=== PATIENT | male | born 1985 | race Two or more races ===

== ENCOUNTER 2024-12-19 02:29 | Emergency (ER) | payer SELFPAY ==
--- NOTE | 2024-12-19 01:21 | EDNOTE_ITS ---
ED Overdose RME/HPI General Chief Complaint: Overdose Stated Complaint: OVERDOSE RME / HPI RME / HPI Narrative: This section includes all my notes and documentations, including HPI, PE, and ED course. Benjamin Roach MD HPI: 39-year-old male BIBA with possible overdose. Per EMS, patient was drinking an unknown liquid with his friends.they reported his eyes suddenly rolled back and he fell back in his chair, going unresponsive. EMS administered Narcan with improvement. Blood sugar was 213. Patient endorses using crystal meth and fentanyl tonight. No other complaints reported. ROS: All negative except as documented in HPI. Physical Exam: General: Alert and oriented. No acute distress. Eyes: Conjunctivae and lids clear. EOMI. PERRL. ENT: No signs of head trauma. Patent airway. Neck: Supple. No tenderness. Heart: RRR. Lungs: No respiratory distress. Good air movement. No rhonchi, wheezing, rales. Chest: No tenderness. Abdomen: Soft and nontender. Normal bowel sounds. No distension. No rebound or guarding. Back: No tenderness. Legs: No clubbing, cyanosis, edema. Skin: Warm and dry. Neuro: Alert and oriented X 3. Cranial Nerves II-XII grossly intact. No peripheral motor deficits. Musculoskeletal: All major joints and bones are not tender with no limited ROM. I reviewed EMS notes. I reviewed all diagnostic test results. My interpretation of the EKG is NSR with no ST-T changes. My review of the CT head report is unremarkable. My review of the CT cervical spine report is no acute fracture. Blood tests unremarkable. UDS positive for methamphetamine and fentanyl. At this point, diagnoses include fentanyl poisoning and methamphetamine use. Treatment here included NS and Zofran. Significant improvement noted. Mental status returned to baseline. Patient stood and ambulated without any problems. Patient requested discharge. Based on my best medical judgment, made decision no further evaluation or treatment indicated at this time. Patient understands and agrees to the discharge instructions customized and printed, see below. Discharge Instructions from Dr. Roach: 1. As you requested, you are being discharged. 2. You don't meet the criteria for emergency retirement in psychiatric unit against your will. Because you have no thoughts of hurting yourself or others. And there are no signs of psychosis (loss of touch with reality) which can potentially be harmful to you and others. And you are able to stand and ambulate without any problems. And you are fully awake and alert and oriented. 3. See a private doctor later today 12/19/2024 for recheck and further care. Ask to review all test results and official radiology reports, to make sure you receive all necessary follow-ups and monitoring. Ask to help you stay healthy both physically and mentally. Including helping you to quit all drugs. And help to receive all services available to you, including referral to see mental health specialists. 4. Seek immediate medical care (you can call 911 any time) with thoughts of hurting yourself or with any concerns. Benjamin Roach MD Related Data Previous Rx's ?Medication ?Instructions ?Recorded naproxen 500 mg tablet 500 mg PO BID PRN pain #30 t abs 09/03/23 Allergies Allergy/AdvReac Type Severity Reaction Status Date / Time No Known Allergies Allergy Unverified 12/19/24 03:06 Review of Systems Review of Systems Systems Reviewed: All systems reviewed, normal except as documented ED Exam Narrative Physical exam: As noted in HPI. Course Quality Measures none Orders Category Date Time Status EKG (ED ONLY) *Do not use* NOW Care 12/19/24 01:23 Completed IV [Insert IV] NOW Care 12/19/24 03:59 Completed Saline [Insert IV] NOW Care 12/19/24 01:22 Completed Straight [In and Out Catheter] X1 Care 12/19/24 01:[address] cervical spine wo con Stat Exams 12/19/24 01:[address] head/brain wo con Stat Exams 12/19/24 01:23 Taken EKG (ED Only) Stat Exams 12/19/24 01:23 Ordered Acetaminophen Stat Lab 12/19/24 01:33 Completed Alcohol, Blood Medical Stat Lab 12/19/24 01:33 Completed Ammonia Stat Lab 12/19/24 01:33 Completed Bilirubin,Direct Stat Lab 12/19/24 01:33 Completed CBC Stat Lab 12/19/24 01:33 Completed CK [Creatine Kinase] Stat Lab 12/19/24 01:33 Completed CMP [Comprehensive Metabolic Panel] Stat Lab 12/19/24 01:33 Completed Drug Screen,Urine Stat Lab 12/19/24 03:40 Completed Magnesium Stat Lab 12/19/24 01:33 Completed PT [Prothrombin Time with INR] Stat Lab 12/19/24 01:33 Completed PTT [Partial Thromboplastin Time] Stat Lab 12/19/24 01:33 Completed Salicylate Stat Lab 12/19/24 01:33 Completed Troponin I Stat Lab 12/19/24 01:33 Completed VBG [Venous Blood Gas] Stat Lab 12/19/24 01:33 Completed Ondansetron Inj [Zofran Inj] Med 12/19/24 01:22 Discontinued 4 mg IVP X1 ONE Sodium Chloride 0.9% 1000 ml [Ns] 1,000 ml Med 12/19/24 01:22 Discontinued IV 999 mls/hr Vital Signs Vital signs: Vital Signs Temperature 97.2 F 12/19/24 03:00 Pulse Rate 63 12/19/24 03:00 Respiratory Rate 14 12/19/24 03:00 Blood Pressure 124/85 H 12/19/24 03:00 Pulse Oximetry (%) 97 12/19/24 03:00 Oxygen Delivery Method Room Air 12/19/24 03:00 Overdose MDM Narrative MDM Narrative:: Scribe Attestation: 12/19/24 Cynthia Hale am scribing for and in the presence of Dr. Roach. Unknown male RUI presents to the ED as a STAT medical for an overdose. Patient was seen by me immediately upon arrival at 0117. Per EMS, patient was drinking an unknown liquid with his friends tonight when his eyes suddenly rolled back and he fell back in his chair, going unresponsive. EMS administered Narcan IN without improvement and Narcan IM with improvement. Blood sugar en route was 213. Patient endorses using crystal meth tonight. No other complaints reported. Patient data External records reviewed:: None (Unknown previous visits) Clinical information provided by:: patient and EMS Social determinants that could affect healthcare access:: substance use (methamphetamine use) Patient has the following chronic illnesses:: unknown How is presenting disease/condition affected by chronic disease/condition?: no chronic disease Evaluation data The following diagnostics were reviewed and interpreted by me:: lab results, radiology exam(s) and EKG tracing(s) (My interpretation of the EKG: NSR (81 bpm) with no ST-T changes. Benjamin Roach MD) Lab and/or radiology exams considered but not ordered:: none Interpretation Summary: I reviewed all diagnostic test results. My interpretation of the EKG is NSR with no ST-T changes. My review of the CT head report is unremarkable. My review of the CT cervical spine report is no acute fracture. Blood tests unremarkable. UDS positive for methamphetamine and fentanyl. Medications / Prescriptions Medications or Prescriptions considered but not ordered:: none Medication administrations:: Medication Administration History Discontinued Medications Sodium Chloride (Ns) 1,000 mls @ 999 mls/hr IV .Q1H1M ONE Stop: 12/19/24 02:22 Last Infusion: 12/19/24 03:58 Dose: Infused Documented By: Admin: 12/19/24 02:33 Dose: 999 mls/hr Documented By: CVL Ondansetron HCl (Ondansetron Inj 2 Mg/Ml Inj 2 Ml) 4 mg IVP X1 ONE; Protocol Stop: 12/19/24 01:23 Last Admin: 12/19/24 03:26 Dose: Not Given Documented By: CVL Non-Admin Reason: Change of Condition NS, Zofran Consultations Consultation(s) initiated? (list below): No Diagnosis Overdose Differential Diagnosis: cocaine intoxication, suicide attempt by multiple drug overdose, poisoning by opiate or related narcotic, drug overdose, acetaminophen overdose and accidental drug ingestion Most likely diagnosis given after review of the tests above:: Fentanyl poisoning, Methamphetamine use Admission Indicated Admission indicated?: not indicated Explain why admission is indicated or not indicated:: With significant improvement, there was no indication for admission. Admission Request Was there a request for admission?: No Disposition Plan Disposition Plan: Discharge Discharge Attestation Discharge Attestation: The patient and all family members were given an opportunity to ask questions and understood the discharge instructions. Discharge instructions specifically effects, indications for sooner follow up or return to the emergency department, and the expected course of current diagnosis. Patient condition: Stable Discharge Plan Plan Patient Disposition: HOME (Self Care) Prescriptions/Referrals Prescriptions/Med Rec: No Action naproxen 500 mg tablet 500 mg PO BID PRN (Reason: pain) Qty: 30 0RF Referrals: No Primary/Family,Physician [Primary Care Provider] - In 1 week Problem List Clinical Impression: Fentanyl poisoning, Methamphetamine use Patient/Caregiver Discharge Instructions Discharge Activity: activity as tolerated Education Materials: ED Drug Abuse Additional Instructions: Discharge Instructions from Dr. Roach: 1. As you requested, you are being discharged. 2. You don't meet the criteria for emergency retirement in psychiatric unit against your will.? Because you have no thoughts of hurting yourself or others.? And there are no signs of psychosis (loss of touch with reality) which can potentially be harmful to you and others. And you are able to stand and ambulate without any problems. And you are fully awake and alert and oriented. 3. See a private doctor later today 12/19/2024 for recheck and further care. Ask to review all test results and official radiology reports, to make sure you receive all necessary follow-ups and monitoring. Ask to help you stay healthy both physically and mentally.? Including helping you to quit all drugs. And help to receive all services available to you, including referral to see mental health specialists. 4. Seek immediate medical care (you can call 911 any time) with thoughts of hurting yourself or with any concerns. Instrucciones de mahin del Dr. Roach: 1. [place] solicit?, se le da de mahin. 2. No cumple con los criterios para un ingreso de emergencia en nolan unidad psiqui?trica contra barba voluntad. Porque no tiene pensamientos de hacerse da?o a s? mismo ni a los dem?s. Y no presenta signos de psicosis (p?rdida de contacto con la realidad) que puedan ser perjudiciales para usted y los dem?s. Y puede ponerse de pie y caminar sin problemas. Y est? completamente despierto, alerta y orientado. 3. Consulte con un m?dico privado hoy mismo, 19/12/2024, para nolan nueva revisi?n y atenci?n adicional. Solicite la revisi?n de todos los resultados de las pruebas y los informes radiol?gicos oficiales para asegurarse de que reciba todos los seguimientos y la monitorizaci?n necesarios. Solicite ayuda para mantenerse jeffery f?laurita y mentalmente, incluyendo la ayuda para dejar todas las drogas. Y ayuda para recibir todos los servicios disponibles, incluyendo la derivaci?n a especialistas en pb mental. 4. Busque atenci?n m?dica inmediata (puede llamar al 911 en cualquier momento) si piensa que quiere hacerse da?o o tiene alguna inquietud. Print Language: German Stand Alone Forms: Cristy Award Info., Patient Portal Info Letter
--- NOTE | 2024-12-19 01:22 | XR_ITS ---
Examination: CT cervical spine without contrast 2-D sagittal reconstructions 2-D coronal reconstructions 3-D reconstructions. Exam date and time:December 19, 2024 0239 hours INDICATIONS: Overdose today, injury to neck, neck pain CTDI:vol (mGy) 9.06 DLP: (mGycm) 192 Technique: Multiple 2 mm axial sections of the cervical spine have been obtained. The coronal and sagittal reconstructions have been obtained. 3-D reconstructions have been obtained. Low dose protocols were performed. One or more of the following dose reduction techniques were used; automated exposure control, adjustment of the mA and/or KV according to patient size, use of iterative reconstruction technique. Findings: Axial sections demonstrate intact base of the skull. C1 exhibit satisfactory relationship to the odontoid. No acute cervical vertebral body fracture seen. Alignment posterior spinous processes satisfactory. Impression: No acute cervical fracture. 10 mm calcification soft tissue neck which may represent submandibular duct calculus Minor soft tissue asymmetry larynx
--- NOTE | 2024-12-19 01:23 | XR_ITS ---
Examination: CT brain head without contrast. 2-D sagittal coronal reconstructions Date and time of exam:December 19, 2024 1439 hours INDICATIONS: Overdose, altered mental status today CTDI: vol (mGy):48.6 DLP: (mGycm):927 Technique: Multiple CT axial sections of the brain have been obtained, 5 mm slice thickness. Contrast has not been administered. 2-D sagittal, coronal reconstructions have been obtained Low dose protocols were performed. One or more of the following dose reduction techniques were used; automated exposure control, adjustment of the mA and/or KV according to patient size, use of iterative reconstruction technique. Findings: No significant ventricular enlargement. Intra-axial or extra-axial hemorrhage density is not seen. No mass effect or midline shift Basal cisterns are not remarkable. Fourth ventricle is midline. Cranial vault intact. Impression: Negative for acute hemorrhage, mass effect or midline shift
[2024-12-19 01:46] LABS: Base Excess, Venous -2 (-3-3); O2 Saturation, Venous 66 % (96-97); PCO2, Venous 58 mmHg (36-56); PO2, Venous 37 mmHg (15-58); pH, Venous 7.26 (7.33-7.66)
[2024-12-19 01:47] LABS: Basophils % (Auto) 1 % (0-2.5); Eosinophils # (Auto) 0.2 Thou/mm3 (0.0-0.5); Eosinophils % (Auto) 2 % (0-10); Hematocrit 43.2 % (41.0-53.0); Immature Granulocytes % (Auto) 0 % (0-0); Immature Granulocytes Auto 0.02 Thou/mm3 (0.00-0.00); Lymphocytes # (Auto) 3.9 Thou/mm3 (1.0-4.8); Lymphocytes % (Auto) 45 % (10-50); Mean Corpuscular HGB Conc 34.7 g/dl (31.0-37.0); Mean Corpuscular Hemoglobin 32.3 pg (25.0-35.0); Mean Corpuscular Volume 93 fL (80-100); Monocytes # (Auto) 0.6 Thou/mm3 (0.0-0.8); Monocytes % (Auto) 7 % (0-12); Neutrophils # (Auto) 3.9 Thou/mm3 (1.8-7.7); Neutrophils % (Auto) 45 % (37-80); Nucleated Red Blood Cell % 0 /100 WBC (0); Platelet Count 260 Thou/mm3 (140-440); RDW Standard Deviation 47.6 fL (35.1-43.9); Red Blood Count 4.65 Miln/mm3 (4.50-5.90); White Blood Count 8.6 Thou/mm3 (3.8-10.6)
[2024-12-19 02:02] LABS: INR 1.1 (0.9-1.3); Prothrombin Time 11.7 Seconds (9.0-12.2)
[2024-12-19 02:05] VITALS: BMI 28.3
[2024-12-19 02:11] LABS: Acetaminophen < 2.0 mcg/mL (10.0-20.0); Alanine Aminotransferase 14 U/L (10-49); Albumin, Serum 4.6 gm/dL (3.5-5.0); Albumin/Globulin Ratio 2.2 (1.2-2.2); Alcohol, Blood Medical < 10.0 mg/dL (0-10.0); Alkaline Phosphatase 95 U/L (46-116); Ammonia < 10 uMol/L (11-32); Anion Gap 13 (7-16); Aspartate Amino Transferase 21 U/L (0-34); BUN/Creatinine Ratio 14 Ratio (12-20); Bilirubin,Direct 0.2 mg/dL (0.0-0.3); Bilirubin,Total 0.8 mg/dL (0.3-1.2); Blood Urea Nitrogen 15 mg/dL (9-23); Calcium 8.9 mg/dL (8.3-10.6); Calcium (Corrected) 8.9 mg/dL (8.5-10.1); Carbon Dioxide 26.2 mMol/L (20.0-31.0); Chloride 104 mMol/L (98-107); Creatine Kinase 149 U/L (34-171); Creatinine (Component) 1.1 mg/dL (0.6-1.3); Estimated Creatinine Clearance 85.5 mL/min (>60); Globulin 2.1 gm/dL (2.3-3.5); Glucose 244 mg/dL (74-106); Magnesium 2.4 mg/dL (1.6-2.6); Osmolality,Calculated 293 (275-295); Potassium 3.4 mMol/L (3.4-5.1); Salicylate < 3.0 mg/dL; Sodium 143 mMol/L (136-145); Total Protein 6.7 gm/dL (5.7-8.2); Troponin I < 0.002 ng/mL (0.0-0.045); eGFR > 60 See Note
[2024-12-19 02:29] VITALS: PULSE 98; RESP 16; O2SAT 98
[2024-12-19] MEDS: SODIUM CHLORIDE 0.9% 1000 ML 1,000 ML 999 ML IV (02:33)
[2024-12-19 03:00] VITALS: BP 124/85; PULSE 63; RESP 14; TEMP 36.2; O2SAT 97
--- NOTE | 2024-12-19 03:24 | PRELIM_ITS ---
CT scan of the head without intravenous contrast (axial sections with sagittal and coronal reformats) December 19, 2024 0239 hours Clinical History: Head injury after fall. Comparison: No prior study is available for comparison. Findings: No evidence of intracranial hemorrhage, mass effect or midline shift. A prominent cisterna magna is incidentally noted. The ventricles and CSF spaces are unremarkable. The calvarium is intact. The mastoid air cells and the visualized paranasal sinuses are clear. Impression: No evidence of intracranial hemorrhage, midline shift or calvarial fracture. Other findings as described above. Suggest clinical correlation and follow up accordingly. Report Electronically Signed By: Eleno Cevallos 12/19/2024 3:24:05 AM [EST]
[2024-12-19 03:55] VITALS: BP 119/82; PULSE 62; RESP 15; O2SAT 94
[2024-12-19 04:12] LABS: Amphetamine/Methamp Scrn,U Positive (Negative); Barbiturate Screen,Urine Negative (Negative); Benzodiazepines Screen,Urine Negative (Negative); Benzoylecgonine Screen, Ur Negative (Negative); Fentanyl Screen,Urine Positive (Negative); Opiate Screen,Urine Negative (Negative); THC Screen,Urine Negative (Negative)
--- NOTE | 2024-12-19 04:47 | PC.NURSE ---
PT AWAKE, ALERT, ABLE TO WALK WITHOUT PROBLEM.
[2024-12-19 04:48] VITALS: BP 107/81; PULSE 59; RESP 15; O2SAT 98
== END 2024-12-19 04:49 | disposition home or self-care (01) ==
PROVIDERS: Emergency Provider Emergency Medicine
DX: T40.411A Poisoning by fentanyl or fentanyl analogs, accidental (unintentional), initial encounter (principal); F15.90 Other stimulant use, unspecified, uncomplicated; L94.2 Calcinosis cutis
CPT/HCPCS: 51701; 36415; 70450; 72125; 80053; 80307; 80320; 80329; 82140; 82248; 82550; 82803; 83735; 84484; 85025; 85610; 85730; 96127; 99284; J7030; G0480